=== PATIENT | male | born 1965 | race Caucasian/White ===

== ENCOUNTER → 2016-10-24 | Outpatient (REF) | payer OTHER | END | disposition home or self-care (01) | LOC: M SFHCPLAZ 11:57 | PROVIDERS: ATTEND Family Medicine | DX: R73.03 Prediabetes (principal) ==

== ENCOUNTER → 2016-12-24 | Outpatient (CLI) | payer BC, OTHER ==
[~2016-12-24] VITALS: Ht 177.8 cm; Wt 98.9 kg
[~2016-12-24] MED LIST: LIDOCAINE 2% INJ 100 MG/5 ML SDV (FOR ANES.) As Ordered ONE; MOTR200T44 PO; MULT1TAB18 PO; NS 1,000 ML IV SCH; PROPOFOL 200 MG/20 ML VIAL As Ordered ONE; ZYRT10CA PO
--- NOTE | 2016-12-24 13:19 | ROOR ---
Patient Name: Jose Antonio Douglas Procedure Date: 12/24/2016 12:40 PM Date of : 1965 Age: 51 Room: [facility] Gender: Male Note Status: Finalized Procedure: Colonoscopy Indications: Screening for colorectal malignant neoplasm Providers: Keaton FAUSTIN MD Referring MD: BRANDIN GARCIA [facility] Farida Requesting Provider: Medicines: Monitored Anesthesia Care Complications: No immediate complications. Procedure: Pre-Anesthesia Assessment: - The heart rate, respiratory rate, oxygen saturations, blood pressure, adequacy of pulmonary ventilation, and response to care were monitored throughout the procedure. The Colonoscope was introduced through the anus and advanced to the cecum, identified by appendiceal orifice and ileocecal valve. The colonoscopy was performed without difficulty. The patient tolerated the procedure well. The quality of the bowel preparation was good. Findings: The perianal and digital rectal examinations were normal. (Exam: Complete, Prep: Good or Excellent.) A 40 mm polyp was found in the cecum. The polyp was flat and multi-lobulated. The polyp was removed with a piecemeal technique using a hot snare. Polyp resection was incomplete. The resected tissue was retrieved. A 5 mm polyp was found in the splenic flexure. The polyp was sessile. The polyp was removed with a cold snare. Resection and retrieval were complete. The exam was otherwise without abnormality on direct and retroflexion views. Impression: - One large (40 mm) polypoid lesion in the cecum, removed piecemeal using a hot snare. INCOMPLETE resection. Resected tissue retrieved. - One 5 mm polyp at the splenic flexure, removed with a cold snare. Resected and retrieved. - The examination was otherwise normal on direct and retroflexion views. Recommendation: - Await pathology results. - If the pathology report is benign, then repeat colonoscopy for surveillance after piecemeal polypectomy in 4 months. - If the pathology report is malignant, then refer to a surgeon. - Telephone endoscopist for pathology results in 2 weeks. - No ibuprofen, naproxen, or other non-steroidal anti-inflammatory drugs for 10 days after polyp removal. Keaton Faustin MD Keaton FAUSTIN MD 12/24/2016 1:18:53 PM This report has been signed electronically. Number of Addenda: 0 Note Initiated On: 12/24/2016 12:40 PM Estimated Blood Loss: Estimated blood loss: none.
[2016-12-24 13:50] VITALS: BP 136/81
== END | disposition home or self-care (01) ==
LOC: M OPP 09:25
PROVIDERS: ATTEND Internal Medicine Gastroenterology
DX: Z12.11 Encounter for screening for malignant neoplasm of colon (principal); D12.0 Benign neoplasm of cecum; K63.5 Polyp of colon; F41.9 Anxiety disorder, unspecified; R06.83 Snoring; Z79.899 Other long term (current) drug therapy

== ENCOUNTER → 2016-12-25 | Outpatient (CLI) | payer BC, OTHER ==
[~2016-12-25] MED LIST changes: -LIDOCAINE 2% INJ 100 MG/5 ML SDV (FOR ANES.) As Ordered ONE; -NS 1,000 ML IV SCH; -PROPOFOL 200 MG/20 ML VIAL As Ordered ONE
[2016-12-25 17:25] LABS: MEAN CORPUSCULAR HEMOGLOBIN 31.7 pg (27.0-33.0); MEAN CORPUSCULAR HGB CONC 34.2 g/dl (32.0-36.5); MEAN CORPUSCULAR VOLUME 92.9 fl (80.0-96.0); RED CELL DISTRIBUTION WIDTH 12.2 % (11.5-14.5); WHITE BLOOD COUNT 7.9 K/mm3 (4.0-10.0)
== END ==
LOC: M LAB 16:22
PROVIDERS: ATTEND Internal Medicine Gastroenterology
DX: D12.0 Benign neoplasm of cecum (principal)

== ENCOUNTER 2017-06-10 11:25 | Outpatient (CLI) | payer BC, OTHER ==
[~2017-06-10] VITALS: Ht 180.3 cm; Wt 95.3 kg
[2017-06-10] MEDS ORDERED: NS 1,000 ML IV ONE (11:30)
[2017-06-10] MEDS ORDERED: PROPOFOL 200 MG/20 ML VIAL As Ordered ONE ×2 (12:18→12:52)
[2017-06-10] MEDS ORDERED: LIDOCAINE 2% INJ 100 MG/5 ML SDV (FOR ANES.) As Ordered ONE (12:38)
--- NOTE | 2017-06-10 13:08 | ROOR ---
Patient Name: Jose Antonio Douglas Procedure Date: 06/10/2017 12:31 PM Date of : 1965 Age: 52 Room: [facility] Gender: Male Note Status: Finalized Procedure: Colonoscopy Indications: Last colonoscopy: December 2016, Therapeutic procedure for known colon polyp Providers: Keaton SHER MD Referring MD: BRANDIN GARCIA [facility] Farida Requesting Provider: Medicines: Monitored Anesthesia Care Complications: No immediate complications. Procedure: Pre-Anesthesia Assessment: - The heart rate, respiratory rate, oxygen saturations, blood pressure, adequacy of pulmonary ventilation, and response to care were monitored throughout the procedure. The Colonoscope was introduced through the anus and advanced to the cecum, identified by appendiceal orifice and ileocecal valve. The colonoscopy was performed without difficulty. The patient tolerated the procedure well. The quality of the bowel preparation was good. Findings: The perianal and digital rectal examinations were normal. A medium post polypectomy scar was found in the cecum. There was residual polyp tissue. The polyp was removed with a piecemeal technique using a hot snare. Polyp resection was incomplete, and the resected tissue was partially retrieved. Coagulation for destruction of remaining portion of lesion using argon plasma at 0.8 liters/minute and 20 julian was successful. The exam was otherwise without abnormality on direct and retroflexion views. Impression: - Post-polypectomy scar with residual polyp tissue in the cecum. Hot snare polypectomy performed and Treated with argon plasma coagulation (APC). - The examination was otherwise normal on direct and retroflexion views. Recommendation: - Repeat colonoscopy in 6 months to review the polypectomy site. - No ibuprofen, naproxen, or other non-steroidal anti-inflammatory drugs for 10 days after polyp removal. Keaton Sher MD Keaton SHER MD 06/10/2017 1:08:37 PM This report has been signed electronically. Number of Addenda: 0 Note Initiated On: 06/10/2017 12:31 PM Estimated Blood Loss: Estimated blood loss: none.
[2017-06-10 13:25] VITALS: BP 115/73
== END 2017-06-10 13:48 | disposition home or self-care (01) ==
LOC: M OPP 11:25
PROVIDERS: ATTEND Internal Medicine Gastroenterology
DX: Z98.890 Other specified postprocedural states (principal); K63.5 Polyp of colon

== ENCOUNTER 2018-01-06 10:04 | Day surgery (SDC) | payer BC, OTHER ==
[2018-01-06] MEDS: NS 1,000 ML IV (10:15)
[2018-01-06] MEDS ORDERED: LIDOCAINE 2% INJ 100 MG/5 ML SDV (FOR ANES.) As Ordered (12:05)
[2018-01-06] MEDS ORDERED: PROPOFOL 500 MG/50 ML VIAL As Ordered (12:05)
== END 2018-01-06 12:55 | disposition home or self-care (01) ==
LOC: M OPP 10:04
DX: Z98.890 Other specified postprocedural states (principal); Z86.010 Personal history of colon polyps; F41.9 Anxiety disorder, unspecified; Z09 Encounter for follow-up examination after completed treatment for conditions other than malignant neoplasm
CPT/HCPCS: 45378

== ENCOUNTER → 2020-09-25 | Outpatient (REF) | payer OTHER ==
[~2020-09-25] MED LIST changes: +ALKACAP2 PO
== END ==
LOC: M LAB REF 20:22
PROVIDERS: ATTEND Internal Medicine Gastroenterology
DX: R19.4 Change in bowel habit (principal)

== ENCOUNTER → 2020-11-02 | Outpatient (CLI) | payer OTHER ==
[~2020-11-02] MED LIST changes: +CETI-24 PO; +CYCL-707 PO; +NAPR500T6 PO
== END ==
LOC: M LABSMTC 10:52
PROVIDERS: ATTEND Anesthesiology
DX: Z01.812 Encounter for preprocedural laboratory examination (principal); Z20.822 Contact with and (suspected) exposure to COVID-19

== ENCOUNTER 2020-11-07 10:03 | Day surgery (SDC) | payer BC, OTHER ==
[~2020-11-07] VITALS: Ht 177.8 cm; Wt 96.6 kg
[~2020-11-07 10:03] MED LIST changes: +LIDOCAINE 2% 100MG/5ML SDV (FOR ANES.) As Ordered ONE; +NS 1,000 ML IV ONE; +propofoL 200 MG/20 ML VIAL As Ordered ONE
--- OUTSIDE RECORDS SUMMARY | 2020-11-07 10:07 | CCD | Continuity of Care Document ---
Author Author Jose Antonio DÍAZ M.D. Organization Unknown Address [address] [place] [address] Phone [phone] Problems Description No Information Available Social History Type Date Description Comments Sex Unknown Tobacco Use Start: Unknown Patient has never smoked Allergies, Adverse Reactions, Alerts Description No Known Drug Allergies Medications Description No Active Medications Immunizations Description No Information Available Vital Signs Date Vital Result Comment 09/23/2020 1:54pm BP Systolic 116 mmHg BP Diastolic 82 mmHg Body Temperature 98.2 F Heart Rate 64 /min Respiratory Rate 16 /min Weight 219.38 lb O2 % BldC Oximetry 94 % Results Description No Information Available Procedures Description No Information Available Medical Devices Description No Information Available Encounters Type Date Location Provider Dx Diagnosis Office Visit 09/23/2020 2:00p [place] [facility] Sin Díaz M. D. R19.4 Change in bowel habit Z00.00 Encntr for general adult med ical exam w/o abnormal findings R73.01 Impaired fasting glucose Assessments Date Code Description Provider 09/23/2020 R19.4 Change in bowel habit Sin Díaz M.D. 09/23/2020 Z00.00 Encounter for [facility] l adult medical examination without abnormal findings Sin Díaz M.D. 09/23/2020 R73.01 Impaired fasting glucose Sin Babin M.D. Plan of Treatment No Information Available Functional Status Description No Information Available Mental Status Description No Information Available Referrals Description No Information Available
--- OUTSIDE RECORDS SUMMARY | 2020-11-07 10:07 | CCD | Continuity of Care Document ---
Author Author Jose Antonio DÍAZ M.D. Organization Unknown Address [address] [place] [address] Phone [phone] Problems Description No Information Available Social History Type Date Description Comments Sex Unknown ETOH Use Consumes 1-2 beers per week Tobacco Use Start: Unknown Patient has never [...] O2 % BldC Oximetry 94 % Results Test Acquired Date Facility Test Result H/L Range Note CBC With Differential/Platelet 09/23/2020 [facility] N E WBC 6.2 x10E3/uL 3.4-10.8 RBC 5.47 x10E6/uL 4.14-5.80 Hemoglobin 17.3 g/dL 13.0-17.7 Hematocrit 50.7 % 37.5-51.0 MCV 93 fL 79-97 MCH 31.6 pg 26.6-33.0 MCHC 34.1 g/dL 31.5-35.7 RDW 12.2 % 11.6-15.4 Platelets 294 x10E3/uL 150-450 Neutrophils 57 % Not Estab. Lymphs 30 % Not Estab. Monocytes 10 % Not Estab. Eos 2 % Not Estab. Basos 1 % Not Estab. Immature Cells TNP Neutrophils (Absolute) 3.6 x10E3/uL 1.4-7.0 Lymphs (Absolute) 1.8 x10E3/uL 0.7-3.1 Monocytes(Absolute) 0.6 x10E3/uL 0.1-0.9 Eos (Absolute) 0.1 x10E3/uL 0.0-0.4 Baso (Absolute) 0.0 x10E3/uL 0.0-0.2 Immature Granulocytes 0 % Not Estab. Immature Grans (Abs) 0.0 x10E3/uL 0.0-0.1 NRBC TNP Hematology Comments: TNP Celiac Disease AB Screen W/Reflex 09/23/2020 [facility] p [place] Deamidated Gliadin Abs, IgA 6 units 0-19 1 t-Transglutaminase (tTG) IgA <2 U/mL 0-3 2 Immunoglobulin A, Qn, Serum 297 mg/dL 90-386 U/A DIP FPA 09/23/2020 [facility] Asso ciates Color Urine YELLOW Yellow Appearance CLEAR Clear Specific [place] 1.020 1.00-1.03 PH Urine 5.5 5.0-8.0 Glucose Urine NEG Negative Bilirubin Urine NEG Negative Ketones NEG Negative Blood Urine TRACE Negative Protein Urine NEG Negative Urobilinogen .2 EU/dl 0.2-1.0 Nitrite NEG Negative Leukocytes NEG Negative CMP 09/23/2020 [facility] Glu 87 mg/dL 70 - 110 3 BUN 13 mg/dL 8 - 23 Creat 1.1 mg/dL 0.7 - 1.2 BUN/Creatinine Ratio 12.2 CALC Na 139 mmol/L 136 - 145 K 4.2 mmol/L 3.5 - 5.1 CL 102.9 mmol/L 98.0 - 107.0 Co2 19.9 mmol/L Low 22.0 - 29.0 CA 9.7 mg/dL 8.6 - 10.2 TP 7.5 g/dL 6.6 - 8.7 Alb 4.8 g/dL 3.5 - 5.2 A/G Ratio 1.8 CALC Globulin 2.7 CALC Alp 74.3 U/L 40 - 129 Alt (SGPT) 16 U/L 0 - 41 Ast (Sgot) 17 U/L 0 - 40 Tbili 1.43 mg/dL High 0.0 - 1.2 Osmolality-Calculated 276.6 CALC Anion Gap 20 mmol/L eGFR 87 # Calc 4 eGFR Non-Afr. Libyan 75 # Calc 5 Lipid Panel 09/23/2020 [facility] Chol 214 mg/dL High 0 - 200 Trig 71 mg/dL 35 - 200 HDL 49 mg/dL 35 - 55 LDL_C 151 Calc High 75 - 129 Cho/HDL Ratio 4.3 CALC Laboratory test finding 09/23/2020 [facility] TSH <pending> 1 Negative 0 - 19 Weak Positive 20 - 30 Moderate to Strong Positive >30 2 Negative 0 - 3 Weak Positive 4 - 10 Positive >10 Tissue Transglutaminase (tTG) has been identified as the endomysial antigen. Studies have demonstr- ated that endomysial IgA antibodies have over 99% specificity for gluten sensitive enteropathy. 3 CHRONIC KIDNEY DISEASE STAGI NG PER NKF: MALE GFR INTERPRETATION: 20-49 YRS: >60 mL/min Normal 50-59 YRS: >56 mL/min Normal 60-69 YRS: >49 mL/min Normal 70-79 YRS: >42 mL/min Normal 80 and above >35 mL/min Normal FEMALE GRF INTERPRETATION: 20-39 YRS: >60 mL/min Normal 40-49 YRS: >58 mL/min Normal 50-59 YRS: >51 mL/min Normal 60-69 YRS: >45 mL/min Normal 70-79 YRS: >39 mL/min Normal 80 and above >32 mL/min NormalCLASSIFICATION CHOLESTEROL FOR ADULTS CHILDREN/ADOLESCENTS* DESIRABLE: <200 MG/DL <170 MG/DL BORDER-LINE HIGH RISK: 200-239 MG/DL 170-199 MG/DL HIGH RISK: >240 MG/DL >200 MG/DL CLASS. FOR PRIMARY LDL CHOL PREVENTION: LDL CHOL-CHILD/ADOLESCENTS* DESIRABLE: <130 MG/DL <110 MG/DL BORDERLINE-HIGH RISK: 130-159 MG/DL 110-129 MG/DL HIGH RISK: >160 MG/DL >130 MG/DL *CHILDREN AND ADOLESCENTS REPRESENTS INDIVIDUALA AGED 2-19 YEARS EXCLUSIVE. 4 CKD-EPI 5 CKD-EPI Procedures Description No Information Available Medical Devices Description No Information Available Encounters Type Date Location Provider Dx Diagnosis Office Visit 09/23/2020 2:00p [place] [facility] Sin Díaz M. D. R19.4 Change in bowel habit Z00.00 Encntr for general adult med ical exam w/o abnormal findings R73.01 Impaired fasting glucose E66.3 Overweight Assessments Date Code Description Provider 09/23/2020 R19.4 Change in bowel habit Sin Díaz M.D. 09/23/2020 Z00.00 Encounter for genera l adult medical examination without abnormal findings Sin Díaz M.D. 09/23/2020 R73.01 Impaired fasting glucose Sin Babin M.D. 09/23/2020 E66.3 Overweight Sin Díaz M.D. Plan of Treatment Future Appointment(s):* 10/24/2020 1:30 pm - Sin Díaz M.D. at [facility] Functional Status Description No Information Available Mental Status Description No Information Available Referrals Description No Information Available
--- OUTSIDE RECORDS SUMMARY | 2020-11-07 10:07 | CCD | Continuity of Care Document ---
Author Author Jose Antonio DÍAZ M.D. Organization Unknown Address [address] [place] [address] Phone [phone] Problems Description No Information Available Social History [...] 297 mg/dL 90-386 U/A DIP FPA 09/23/2020 [facility] Asso ciates Color Urine YELLOW Yellow Appearance CLEAR Clear Specific [place] 1.020 1.00-1.03 PH Urine 5.5 5.0-8.0 Glucose [...] eGFR 87 # Calc 4 eGFR Non-Afr. Maltese 75 # Calc 5 Lipid Panel 09/23/2020 [...] Provider Dx Diagnosis Office Visit 09/23/2020 2:00p [place] [facility] Sin Díaz M. D. R19.4 Change [...] 1:30 pm - Sin Díaz M.D. at [facility] Functional Status Description No Information Available Mental Status Description No Information Available Referrals Description No Information Available
--- OUTSIDE RECORDS SUMMARY | 2020-11-07 10:07 | CCD | Continuity of Care Document ---
Author Author Jose Antonio DÍAZ M.D. Organization Unknown Address [address] [place] [address] Phone [phone] Problems Description No Information Available Social History [...] 297 mg/dL 90-386 U/A DIP FPA 09/23/2020 [facility] Asso ciates Color Urine YELLOW Yellow Appearance CLEAR Clear Specific [place] 1.020 1.00-1.03 PH Urine 5.5 5.0-8.0 Glucose Urine NEG Negative Bilirubin Urine NEG Negative Ketones NEG Negative Blood Urine TRACE Negative Protein Urine NEG Negative Urobilinogen .2 EU/dl 0.2-1.0 Nitrite NEG Negative Leukocytes NEG Negative Laboratory test finding 09/23/2020 [facility] TSH <pending> 1 Negative 0 - 19 Weak Positive 20 - 30 Moderate to Strong Positive >30 2 Negative 0 - 3 Weak Positive 4 - 10 Positive >10 Tissue Transglutaminase (tTG) has been identified as the endomysial antigen. Studies have demonstr- ated that endomysial IgA antibodies have over 99% specificity for gluten sensitive enteropathy. Procedures Description No Information Available Medical Devices Description No Information Available Encounters Type Date Location Provider Dx Diagnosis Office Visit 09/23/2020 2:00p [place] [facility] Sin Díaz M. D. R19.4 Change in bowel habit Z00.00 Encntr for general adult med ical exam w/o abnormal findings R73.01 Impaired fasting glucose E66.3 Overweight Assessments Date Code Description Provider 09/23/2020 R19.4 Change in bowel habit Sin Díaz M.D. 09/23/2020 Z00.00 Encounter for [facility] l adult medical examination without abnormal findings Sin Díaz M.D. 09/23/2020 R73.01 Impaired fasting glucose Sin Babin M.D. 09/23/2020 E66.3 Overweight Sin Díaz M.D. Plan of Treatment Future Appointment(s):* 10/24/2020 1:30 pm - Sin Díaz M.D. at [facility] Functional Status Description No Information Available Mental Status Description No Information Available Referrals Description No Information Available
--- OUTSIDE RECORDS SUMMARY | 2020-11-07 10:07 | CCD | Continuity of Care Document ---
Author Author Jose Antonio OLVERA M.D. Organization Unknown Address [address] [place] [address] Phone [phone] Problems Description No Information Available Social History Type Date Description Comments Sex Unknown ETOH Use Consumes 1-2 beers per week Tobacco Use Start: Unknown Patient has never smoked Allergies, Adverse Reactions, Alerts Description No Known Drug Allergies Medications Active Medications SIG Qnty Indications Ordering Provide r Date Naproxen 500mg Tablets DR 1 tab by mouth twice a day as needed pain 60tabs Sin Olvera M. D. 10/24/2020 Cyclobenzaprine HCL 10mg Tablets take one tablet by mouth at bedtime as needed 30tabs Pablo Olvera M.D. 10/24/2020 History Medications No Active Medications Unknown 04/2021 - 10/24/2020 Immunizations Description No Information Available Vital Signs Date Vital Result Comment 10/24/2020 1:30pm BP Systolic 118 mmHg BP Diastolic 78 mmHg Body Temperature 97.2 F Heart Rate 70 /min Respiratory Rate 18 /min Weight 217.00 lb O2 % BldC Oximetry 98 % 09/23/2020 1:54pm BP Systolic 116 mmHg BP [...] 297 mg/dL 90-386 U/A DIP FPA 09/23/2020 [facility] Asso ciates Color Urine YELLOW Yellow Appearance CLEAR Clear Specific [place] 1.020 1.00-1.03 PH Urine 5.5 5.0-8.0 Glucose [...] eGFR 87 # Calc 4 eGFR Non-Afr. [place] 75 # Calc 5 Lipid Panel 09/23/2020 [facility] Chol 214 mg/dL High 0 - 200 Trig 71 mg/dL 35 - 200 HDL 49 mg/dL 35 - 55 LDL_C 151 Calc High 75 - 129 Cho/HDL Ratio 4.3 CALC Laboratory test finding 09/23/2020 [facility] TSH 0.536 ulU/mL Low 0.60 - 4.8 1 Negative 0 - 19 Weak Positive [...] Date Location Provider Dx Diagnosis Office Visit 10/24/2020 1:30p [place] [facility] Sin Olvera M. D. E78.5 Hyperlipidemia, unspecified E05.90 Thyrotoxicosis, unsp without thyrotoxic crisis or storm M54.9 Dorsalgia, unspecified R31.9 Hematuria, unspecified Office Visit 09/23/2020 2:00p [place] [facility] Sin Olvera M. D. R19.4 Change in bowel habit Z00.00 Encntr for general adult med ical exam w/o abnormal findings R73.01 Impaired fasting glucose E66.3 Overweight Assessments Date Code Description Provider 10/24/2020 E78.5 Hyperlipidemia, unspecified [facility] Sin holder M.D. 10/24/2020 E05.90 Thyrotoxicosis, unsp ecified without thyrotoxic crisis or storm Sin Olvera M.D. 10/24/2020 M54.9 Dorsalgia, unspecified Sin Olvera M.D. 10/24/2020 R31.9 Hematuria, unspecified Sin Olvera M.D. 09/23/2020 R19.4 Change in bowel habit Sin Olvera M.D. 09/23/2020 Z00.00 Encounter for [facility] adult medical examination without abnormal findings Sin Olvera M.D. 09/23/2020 R73.01 Impaired fasting glucose Sin Babin M.D. 09/23/2020 E66.3 Overweight Sin Olvera M.D. Plan of Treatment No Information Available Functional Status Description No Information Available Mental Status Description No Information Available Referrals Description No Information Available
--- OUTSIDE RECORDS SUMMARY | 2020-11-07 10:07 | CCD | Continuity of Care Document ---
Author Author Jose Antonio SHER MD Organization Unknown Address [address] [place] [address] Phone [phone] Care Team Providers Care Weatherization Administrator Name Role Phone Praveen Littlejohn D.O. AUTM [phone] Sin Olvera M.D. AUTM [phone] Problems Description No Active Problems Social History Type Date Description Comments Sex Unknown ETOH Use Rarely Tobacco Use Start: Unknown Non Smoker Allergies, Adverse Reactions, Alerts Description No Known Drug Allergies Medications Active Medications SIG Qnty Indications Ordering Provide r Date Suprep Bowel Prep Kit 17.5-3.13-1.6GM/177ML Solution as directed - see dr reilly instructions 1Kit R19.4 Keaton Sher MD 09/21/2020 Milk Of Magnesia 7.75% Suspension take 45 milliliters by mouth about 1-2 days before colonoscopy prep 360ml R19.4 Keaton Sher MD 09/21/2020 Zyrtec Allergy D 10mg Tablets 1 by mouth every day prn Unknown Immunizations Description No Information Available Vital Signs Date Vital Result Comment 09/21/2020 1:15pm BP Systolic 153 mmHg BP Diastolic 84 mmHg Height 70.5 inches 5'10.50" Weight 220.00 lb BMI (Body Mass Index) 31.1 kg/m2 [place] Body Weight 166 lb Weight 99.792 kg BSA (Body Surface Area) 2.19 m2 12/31/2017 3:14pm BP Systolic 133 mmHg BP Diastolic 87 mmHg Height 70.5 inches 5'10.50" Weight 217.00 lb BMI (Body Mass Index) 30.7 kg/m2 [place] Body Weight 166 lb Weight 98.431 kg BSA (Body Surface Area) 2.17 m2 Results Description No Information Available Procedures Description No Information Available Medical Devices Description No Information Available Encounters Type Date Location Provider Dx Diagnosis Office Visit 09/21/2020 1:15p [facility] Keaton Sher MD R19.4 Change in bowel habit D12.0 Benign neoplasm of cecum Assessments Date Code Description Provider 09/21/2020 R19.4 Change in bowel habit Keaton roche MD 09/21/2020 D12.0 Benign neoplasm of cecum Keaton giles MD Plan of Treatment 09/21/2020 - Keaton Sher MD* R19.4 Change in bowel habit * D12.0 Benign neoplasm of cecum * * New Medication:* Suprep Bowel Prep Kit 17.5-3.13-1.6 GM/177ML * Milk Of Magnesia 7.75 % * New Labs:* Gastrointestinal (GI) Panel, Ordered: 09/21/20 * Tissue Transglutaminase Iga, Ordered: 09/21/20 * Immunoglobulin A, Ordered: 09/21/20 * FT4&TSH Panel, Ordered: 09/21/20 * New Orders:* Colonoscopy, Ordered: 09/21/20 * Recommendations:* Colonoscopy -- for checkup on polypectomy site in cecum and to reassess colon for any physical disorder Fiber supplement daily. Functional Status Description No Information Available Mental Status Description No Information Available Referrals Description No Information Available
--- OUTSIDE RECORDS SUMMARY | 2020-11-07 10:07 | CCD | Continuity of Care Document ---
Author Author Jose Antonio OLVERA M.D. Organization Unknown Address [address] [place] [address] Phone [phone] Problems Description No Information Available Social History [...] Rate 70 /min Respiratory Rate 18 /min Height 70 inches 5'10" Weight 217.00 lb [place] Body Weight 166 lb BMI (Body Mass Index) 31.1 kg/m2 O2 % BldC Oximetry 98 % 09/23/2020 [...] 297 mg/dL 90-386 U/A DIP FPA 09/23/2020 [facility] Asso ciates Color Urine YELLOW Yellow Appearance CLEAR Clear Specific [place] 1.020 1.00-1.03 PH Urine 5.5 5.0-8.0 Glucose [...] eGFR 87 # Calc 4 eGFR Non-Afr. Micronesian 75 # Calc 5 Lipid Panel 09/23/2020 [...] YEARS EXCLUSIVE. 4 CKD-EPI 5 CKD-EPI Procedures Date Code Description Status 10/24/2020 49978 Electrocardiogram Complete Compl eted Medical Devices Description No Information Available Encounters Type Date Location Provider Dx Diagnosis Office Visit 10/24/2020 1:30p [place] [facility] Sin Olvera M. D. E78.5 Hyperlipidemia, unspecified E05.90 Thyrotoxicosis, unsp without thyrotoxic crisis or storm M54.9 Dorsalgia, unspecified R31.9 Hematuria, unspecified Office Visit 09/23/2020 2:00p [place] [facility] Sin Olvera M. D. R19.4 Change in bowel habit Z00.00 Encntr for general adult med ical exam w/o abnormal findings R73.01 Impaired fasting glucose E66.3 Overweight Assessments Date Code Description Provider 10/24/2020 E78.5 Hyperlipidemia, unspecified [facility] M.D. 10/24/2020 E05.90 Thyrotoxicosis, unsp ecified without thyrotoxic crisis or storm Sin Olvera M.D. 10/24/2020 M54.9 Dorsalgia, unspecified Sin Olvera M.D. 10/24/2020 R31.9 Hematuria, unspecified Sin Olvera M.D. 09/23/2020 R19.4 Change in bowel habit Sin Olvera M.D. 09/23/2020 Z00.00 Encounter for [facility] adult medical examination without abnormal findings Sin Olvera M.D. 09/23/2020 R73.01 Impaired fasting glucose Sin Babin M.D. 09/23/2020 E66.3 Overweight Sin Olvera M.D. Plan of Treatment Future Appointment(s):* 01/27/2021 1:30 pm - Sin Olvera M.D. at [facility] Functional Status Description No Information Available Mental Status Description No Information Available Referrals Description No Information Available
--- OUTSIDE RECORDS SUMMARY | 2020-11-07 10:07 | CCD | Continuity of Care Document ---
Author Author Jose Antonio PATRICK P.A. Organization Unknown Address [address] [place] [address] Phone [phone] Care Team Providers Care Hydraulic Miner Name Role Phone Praveen LittlejohnM [phone] Problems Description No Active Problems Social History Type Date Description Comments Sex Unknown ETOH Use Occasionally consumes alcohol Tobacco Use Start: Unknown Patient has never smoked Allergies, Adverse Reactions, Alerts Description No Known Drug Allergies Medications Active Medications SIG Qnty Indications Ordering Provide r Date Motrin Ib 200mg Tablets prn Unknown Naproxen 375mg Tablets take one tablet by mouth twice a day after meals Unknown Cyclobenzaprine HCL 10mg Tablets Unknown Immunizations Description No Information Available Vital Signs Date Vital Result Comment 10/26/2020 8:21am Body Temperature 97.1 F Height 70.75 inches 5'10.75" Weight 216.00 lb BMI (Body Mass Index) 30.3 kg/m2 09/05/2017 8:47am Body Temperature 97.3 F Height 69.75 inches 5'9.75" Weight 213.50 lb BMI (Body Mass Index) 30.9 kg/m2 Results Description No Information Available Procedures Date Code Description Status 10/26/2020 69891 X-Ray Spine Lumbosacral Complete Inc Bending Views Min Of 6 Completed Medical Devices Description No Information Available Encounters Description No Information Available Assessments Date Code Description Provider 10/26/2020 M51.36 Other intervertebral disc degene ration, lumbar region Sabi Fraga 10/26/2020 M43.16 Spondylolisthesis, lumbar region Sabi Fraga Plan of Treatment 10/26/2020 - Sabi Fraga* M51.36 Other intervertebral disc degeneration, lumbar region* Follow up:* 2-3 weeks back alayna with [facility] leave as wc per [facility] * M43.16 Spondylolisthesis, lumbar region Functional Status Description No Information Available Mental Status Description No Information Available Referrals Description No Information Available
--- OUTSIDE RECORDS SUMMARY | 2020-11-07 10:07 | CCD | Continuity of Care Document ---
Author Author Jose Antonio DÍAZ M.D. Organization Unknown Address [address] [place] [id number] Phone [phone] Problems Description No Information Available Social History [...] Date Facility Test Result H/L Range Note U/A DIP [facility] 09/23/2020 [facility] Color Urine YELLOW Yellow Appearance CLEAR Clear Specific [place] 1.020 1.00-1.03 PH Urine 5.5 5.0-8.0 Glucose Urine NEG Negative Bilirubin Urine NEG Negative Ketones NEG Negative Blood Urine TRACE Negative Protein Urine NEG Negative Urobilinogen .2 EU/dl 0.2-1.0 Nitrite NEG Negative Leukocytes NEG Negative Laboratory test finding 09/23/2020 FPA/Inhouse TSH <pending> Procedures Description No Information Available Medical Devices Description No Information Available Encounters Type Date Location Provider Dx Diagnosis Office Visit 09/23/2020 2:00p [facility] Sin Díaz M. D. R19.4 Change [...] Sin Díaz M.D. at [facility] Functional Status Description No Information Available Mental Status Description No Information Available Referrals Description No Information Available
--- OUTSIDE RECORDS SUMMARY | 2020-11-07 10:08 | CCD ---
Author Author [facility] Organization [facility] Address Unknown Phone Unavailable Care Team Providers Care Deliverer Outside Name Role Phone Dmitry DÍAZ MD Unavailable Unavailable Dmitry DÍAZ MD Unavailable Unavailable Dmitry DÍAZ MD Unavailable Unavailable Dmitry DÍAZ MD Unavailable Unavailable Dmitry DÍAZ MD Unavailable Unavailable Dmitry DÍAZ MD Unavailable Unavailable Dmitry DÍAZ MD Unavailable Unavailable Dmitry DÍAZ MD Unavailable Unavailable Dmitry DÍAZ MD Unavailable Unavailable Dmitry DÍAZ MD Unavailable Unavailable Dmitry DÍAZ MD Unavailable Unavailable Dmitry DÍAZ MD Unavailable Unavailable Dmitry DÍAZ MD Unavailable Unavailable Dmitry DÍAZ MD Unavailable Unavailable Dmitry DÍAZ MD Unavailable Unavailable Dmitry DÍAZ MD Unavailable Unavailable Dmitry DÍAZ MD Unavailable Unavailable Dmitry DÍAZ MD Unavailable Unavailable Dmitry DÍAZ MD Unavailable Unavailable Dmitry DÍAZ MD Unavailable Unavailable Dmitry DÍAZ MD Unavailable Unavailable Dmitry DÍAZ MD Unavailable Unavailable Dmitry DÍAZ MD Unavailable Unavailable Dmitry DÍAZ MD Unavailable Unavailable Dmitry DÍAZ MD Unavailable Unavailable Dmitry DÍAZ MD Unavailable Unavailable Dmitry DÍAZ MD Unavailable Unavailable Dmitry DÍAZ MD Unavailable Unavailable Dmitry DÍAZ MD Unavailable Unavailable Dmitry DÍAZ MD Unavailable Unavailable Dmitry DÍAZ MD Unavailable Unavailable Dmitry DÍAZ MD Unavailable Unavailable Dmitry DÍAZ MD Unavailable Unavailable Dmitry DÍAZ MD Unavailable Unavailable Dmitry DÍAZ MD Unavailable Unavailable Dmitry DÍAZ MD Unavailable Unavailable Dmitry DÍAZ MD Unavailable Unavailable Dmitry DÍAZ MD Unavailable Unavailable Dmitry DÍAZ MD Unavailable Unavailable Dmitry DÍAZ MD Unavailable Unavailable Dmitry DÍAZ MD Unavailable Unavailable BREDmitry MD Unavailable Unavailable BRE H CAMERON MAE Unavailable Unavailable BRE H CAMERON MD Unavailable Unavailable BREDmitry MD Unavailable Unavailable BREDmitry MD Unavailable Unavailable BREDmitry MD Unavailable Unavailable BREDmitry MD Unavailable Unavailable BREDmitry MD Unavailable Unavailable BRE, H CAMERON MAE Unavailable Unavailable BREDmitry MD Unavailable Unavailable BRE H CAMERON MAE Unavailable Unavailable BRE H CAMERON MD Unavailable Unavailable BREDmitry MD Unavailable Unavailable BRE H CAMERON MD Unavailable Unavailable BRE H CAMERON MD Unavailable Unavailable BREDmitry MD Unavailable Unavailable BRE, Dmitry BARNES MD Unavailable Unavailable BRE H CAMERON MAE Unavailable Unavailable BRE H CAMERON MAE Unavailable Unavailable BRE H CAMERON MAE Unavailable Unavailable Dmitry DÍAZ MD Unavailable Unavailable Dmitry DÍAZ MD Unavailable Unavailable Dmitry DÍAZ MD Unavailable Unavailable Dmitry DÍAZ MD Unavailable Unavailable Dmitry DÍAZ MD Unavailable Unavailable Dmitry DÍAZ MD Unavailable Unavailable Dmitry DÍAZ MD Unavailable Unavailable Dmitry DÍAZ MD Unavailable Unavailable Dmitry DÍAZ MD Unavailable Unavailable Dmitry DÍAZ MD Unavailable Unavailable Dmitry DÍAZ MD Unavailable Unavailable Dmitry DÍAZ MD Unavailable Unavailable Dmitry DÍAZ MD Unavailable Unavailable Dmitry DÍAZ MD Unavailable Unavailable Dmitry DÍAZ MD Unavailable Unavailable REINDL, MELISSA MAE Unavailable Unavailable REINDL, MELISSA MAE Unavailable Unavailable REINDL, MELISSA MAE Unavailable Unavailable REINDL, MELISSA MAE Unavailable Unavailable SHIVADL, MELISSA MAE Unavailable Unavailable RAMIN, MELISSA MAE Unavailable Unavailable RAMIN, MELISSA MAE Unavailable Unavailable SHIVADL, MELISSA MAE Unavailable Unavailable RAMIN, MELISSA MAE Unavailable Unavailable REINDL, MELISSA MAE Unavailable Unavailable REINDL, MELISSA MAE Unavailable Unavailable REINJJ, MELISSA MAE Unavailable Unavailable REINDL, MELISSA MAE Unavailable Unavailable REINDL, MELISSA MAE Unavailable Unavailable REINDL, MELISSA MAE Unavailable Unavailable SHIVADL, MELISSA MAE Unavailable Unavailable SHIVADL, MELISSA MAE Unavailable Unavailable REINDL, MELISSA MAE Unavailable Unavailable REINDL, MELISSA MAE Unavailable Unavailable REINDL, MELISSA MAE Unavailable Unavailable SHIVADL, MELISSA MAE Unavailable Unavailable RAMIN, MELISSA MAE Unavailable Unavailable REINDL, MELISSA MAE Unavailable Unavailable REINDL, MELISSA MAE Unavailable Unavailable REINDL, MELISSA MAE Unavailable Unavailable REINDL, MELISSA MAE Unavailable Unavailable SHIVADL, MELISSA MAE Unavailable Unavailable RAMIN, MELISSA MAE Unavailable Unavailable SHIVADL, MELISSA MAE Unavailable Unavailable REINDL, MELISSA MAE Unavailable Unavailable REINDL, MELISSA MAE Unavailable Unavailable REINDL, MELISSA MAE Unavailable Unavailable REINDL, MELISSA MD Unavailable Unavailable REINDL, MELISSA MD Unavailable Unavailable REINDL, MELISSA MD Unavailable Unavailable REINDL, MELISSA MD Unavailable Unavailable REINDL, MELISSA MD Unavailable Unavailable REINDL, MELISSA MD Unavailable Unavailable REINDL, MELISSA MD Unavailable Unavailable REINDL, MELISSA MD Unavailable Unavailable REINDL, MELISSA MD Unavailable Unavailable REINDL, MELISSA MD Unavailable Unavailable REINDL, MELISSA MD Unavailable Unavailable REINDL, MELISSA MD Unavailable Unavailable Re-disclosure Warning The records that you are about to access may contain information from federally-assisted alcohol or drug abuse programs. If such information is present, then the following federally mandated warning applies: This information has been disclosed to you from records protected by federal confidentiality rules (42 CFR part 2). The federal rules prohibit you from making any further disclosure of this information unless further disclosure is expressly permitted by the written consent of the person to whom it pertains or as otherwise permitted by 42 CFR part 2. A general authorization for the release of medical or other information is NOT sufficient for this purpose. The Federal rules restrict any use of the information to criminally investigate or prosecute any alcohol or drug abuse patient.The records that you are about to access may contain highly sensitive health information, the redisclosure of which is protected by Article 27-F of the [place] [facility] Public Health law. If you continue you may have access to information: Regarding HIV / AIDS; Provided by facilities licensed or operated by the [facility] Office of Mental Health; or Provided by the [facility] Office for People With Developmental Disabilities. If such information is present, then the following [facility] mandated warning applies: This information has been disclosed to you from confidential records which are protected by state law. State law prohibits you from making any further disclosure of this information without the specific written consent of the person to whom it pertains, or as otherwise permitted by law. Any unauthorized further disclosure in violation of state law may result in a fine or group home sentence or both. A general authorization for the release of medical or other information is NOT sufficient authorization for further disc losure. Family History Family Member Name Family Member Gender Family Member Status Date o f Status Description Data Source(s) Unknown Unknown Problem [facility] ([facility] Unknown Female Problem [facility] ([facility] ) Encounters Encounter Providers Location Date Indications Data Source(s ) Outpatient Attender: CAMERON DÍAZ MD [facility] 04/2021 12:30:00 PM EST [facility] ([facility] Outpatient Attender: CAMERON DÍAZ MD [place] 04/2021 01:00:00 PM EST [facility] ([facility] Outpatient Attender: MELISSA Wiley/Estefany/Henry/Shiva roche 09/21/2020 12:15:00 PM EST [facility] ([facility] Medications Medication Brand Name Start Date Product Form Dose Route Admi nistrative Instructions Pharmacy Instructions Status Indications Reaction Description Data Source(s) Cyclobenzaprine hydrochloride 10 MG Oral Tablet Cyclobenzapr ine HCL 10/24/2020 12:00:00 AM EST ORAL active M EDENT ([facility] Naproxen 500 MG Delayed Release Oral Tablet Naproxen 04/2021 12:00:00 AM EST ORAL active MED[facility] ( [facility] Cyclobenzaprine hydrochloride 10 MG Oral Tablet CYCLOBENZAPR INE HCL 10/24/2020 12:00:00 AM EST tablet 30 TAKE ONE TABLET BY MOUTH EVERY DAY AT BEDTIME NEEDED TAKE ONE TABLET BY MOUTH EVERY DAY AT BEDTIME NEEDED SOLD : 10/24/2020 [facility] 17.5-3.13-1.6 gram 10/17/2020 12:00:00 AM EST recon soln [address] KIM INSTRUCTIONS DIRECTED PER DR KIM INSTRUCTIONS SOLD: 10/21/19 21 [facility] No Active Medications 09/23/2020 12:00:00 AM EST completed MED[facility] ([facility] Magnesium Hydroxide 80 MG/ML Oral Suspension Milk Of Magnesi a 09/21/2020 12:00:00 AM EST ORAL active M EDENT ([facility], ) Suprep Bowel Prep Kit Suprep Bowel Prep Kit 09/21/2020 12:00:00 AM EST active MEDENT ([facility], ) 1 % 04/28/2020 12:00:00 AM EDT gel 60 APPLY TO FACE TWO TIMES A DAY APPLY TO FACE TWO TIMES A DAY SOLD: 05/05/2020 [facility] 2 % 04/28/2020 12:00:00 AM EDT ointment 22 APPLY TO EXCORIATED AREAS THREE TIMES A DAY UNTIL RESOLVED APPLY TO EXCORIATED AREAS THREE TIMES A DAY UNTIL RESOLVED SOLD: 05/05/2020 [facility] 2.5 % 04/28/2020 12:00:00 AM EDT cream 28 APPLY TO AFFECTED AREAS TWO TIMES A DAY UNTIL CLEAR THEN USE NEEDED APPLY TO AFFECTED AREAS TWO TIMES A DAY UNTIL CLEAR THEN USE NEEDED SOLD: 05/05/2020 [facility] Insurance Providers Payer name Policy type / Coverage type Policy ID Covered constitution party ID Covered constitution party's relationship to schneider Policy Schneider Plan Information [employer] [id number] SP [id number] BCBS EMPIRE NANCY DIV [id number] SP [id number] [employer] [facility] Health Maintenance Organization (HMO) [id number] Self [id number] TYFFON () Workers Compensation [id number] Self [id number] [employer] Maintenance Organization (HMO) [id number] Self [id number] BCBS EMPIRE NANCY DIV [id number] SP [id number] [employer] [id number] SP [id number] [employer] Health Maintenance Organization (HMO) [id number] Self [id number] [employer] [facility] [employer] Maintenance Organization (HMO) [id number] Self [id number] [employer] [facility] Maintenance Organization (HMO) [id number] Self [id number] [employer] [id number] SP [id number] [employer] [facility] Health Maintenance Organization (HMO) [id number] Self [id number] EMPIR PLAN [facility] U [id number] Self [id number] BCBS EMPIRE NANCY DIV [id number] SP [id number] [employer] [facility] Health Maintenance Organization (HMO) [id number] Self [id number] [employer] Health Maintenance Organization (HMO) [id number] Self [id number] [employer] Maintenance Organization (HMO) [id number] Self [id number] [employer] [facility] [employer] Maintenance Organization (HMO) [id number] Self [id number] TYFFON () Workers Compensation Self [employer] Health Maintenance Organization (HMO) Self [employer] [id number] SP [id number] BCBS EMPIRE NANCY DIV [id number] SP [id number] [employer] O [id number] S [id number] SELF PAY UNAVAILABLE SP [facility] [id number] SP [id number] Surgeries/Procedures Procedure Description Date Indications Data Source(s) X-Ray Spine Lumbosacral Complete Inc Bending Views Min Of 6 10/26/2020 12:00:00 AM EST [facility] ([facility]) Electrocardiogram Complete 10/24/2020 12:00:00 AM EST [facility] ([facility] Results ID Date Data Source [id number] 11/02/2020 11:00:00 AM EST [facility] Name Value Range Interpretation Code Description Data Sophie rce(s) Supporting Document(s) SARS coronavirus 2 RNA Not Detected [facility] [place] This lab was ordered by [facility] and reported by [facility]. ID Date Data Source [id number] 09/23/2020 03:03:00 PM EST [facility] ([facility] Name Value Range Interpretation Code Description Data Sophie rce(s) Supporting Document(s) IgA [Mass/volume] in Serum or Plasma 297 mg/dL 90-386 [facility] ([facility] Tissue transglutaminase IgA Ab [Units/volume] in Serum Labor atory test result 0-3 [facility] ([facility] Negative 0 - 3 Weak Positive 4 - 10 Positive >10 Tissue Transglutaminase (tTG) has been identified as the endomysial antigen. Studies have demonstr- ated that endomysial IgA antibodies have over 99% specificity for gluten sensitive enteropathy. Deamidated Gliadin Abs, IgA 6 units 0-19 [facility] ([facility] Negative 0 - 19 Weak Positive 20 - 30 Moderate to Strong Positive >30 ID Date Data Source [id number] 09/23/2020 03:03:00 PM EST [facility] ([facility] Name Value Range Interpretation Code Description Data Sophie rce(s) Supporting Document(s) Hemoglobin [Mass/volume] in Blood 17.3 g/dL 13.0-17.7 [facility] ([facility] Erythrocytes [#/volume] in Blood by Automated count 5.47 x10E6/uL 4.1 4-5.80 [facility] ([facility] Leukocytes [#/volume] in Blood by Automated count 6.2 x10E3/uL 3.4-10 .8 [facility] ([facility] Hematocrit [Volume Fraction] of Blood by Automated count 50.7 % 3 7.5-51.0 [facility] ([facility] Erythrocyte mean corpuscular volume [Entitic volume] by Auto mated count 93 fL 79-97 [facility] ([facility] Erythrocyte mean corpuscular hemoglobin [Entitic mass] by Automated count 31.6 pg 26.6-33.0 [facility] ([facility] Erythrocyte distribution width [Ratio] by Automated count 12.2 % 11.6-15.4 [facility] ([facility] Erythrocyte mean corpuscular hemoglobin concentration [Mass/volume] by Automated count 34.1 g/dL 31.5-35.7 [facility] ([facility] Platelets [#/volume] in Blood by Automated count 294 x10E3/uL 150-450 [facility] ([facility] Neutrophils 57 % [facility] Lymphs 30 % [facility] Monocytes/100 leukocytes in Blood by Automated count 10 % [facility] ([facility] Basophils/100 leukocytes in Blood by Automated count 1 % [facility] ([facility] Eosinophils/100 leukocytes in Blood by Automated count 2 % [facility] ([facility] Neutrophils [#/volume] in Blood by Automated count 3.6 x10E3/uL 1.4-7 .0 [facility] ([facility] Immature cells [#/volume] in Blood Laboratory test result [facility] ([facility] Monocytes [#/volume] in Blood 0.6 x10E3/uL 0.1-0.9 [facility] ([facility] Lymphocytes [#/volume] in Blood 1.8 x10E3/uL 0.7-3.1 [facility] ([facility] Eosinophils [#/volume] in Blood by Automated count 0.1 x10E3/uL 0.0-0 .4 [facility] ([facility] Immature granulocytes [#/volume] in Blood by Automated count 0.0 x10E3/uL 0.0-0.1 [facility] Immature granulocytes/100 leukocytes in Blood by Automated count 0 % [facility] ([facility] Basophils [#/volume] in Blood by Automated count 0.0 x10E3/uL 0.0-0.2 [facility] ([facility] Morphology [Interpretation] in Blood Narrative Laboratory test result [facility] ([facility] Nucleated erythrocytes/100 leukocytes [Ratio] in Blood by Automated count Laboratory test result [facility] ([facility] ID Date Data Source [id number] 09/23/2020 03:02:00 PM EST MEDENT ([facility] Name Value Range Interpretation Code Description Data Sophie rce(s) Supporting Document(s) Appearance of Urine Laboratory test result [facility] ([facility] Color Urine Laboratory test result M EDENT ([facility] Specific [place] 1.020 1.00-1.03 [facility] ([facility] Glucose Urine Laboratory test result [facility] ([facility] PH Urine 5.5 5.0-8.0 [facility] Ketones Laboratory test result [facility] ([facility] Bilirubin.total [Presence] in Urine by Test strip Laboratory test res ult [facility] ([facility] Blood Urine Laboratory test result M EDENT ([facility] Urobilinogen 0.2 EU/dl 0.2-1.0 [facility] ([facility] Protein Urine Laboratory test result [facility] ([facility] Leukocytes Laboratory test result ME DENT ([facility] Nitrite Laboratory test result [facility] ([facility] ID Date Data Source [id number] 09/23/2020 02:58:00 PM EST MEDENT ([facility] Name Value Range Interpretation Code Description Data Sophie rce(s) Supporting Document(s) Thyrotropin [Units/volume] in Serum or Plasma 0.536 ulU/mL 0. 60-4.8 Below low normal [facility] ([facility] ) ID Date Data Source [id number] 09/23/2020 02:58:00 PM EST MED[facility] ([facility] Name Value Range Interpretation Code Description Data Sophie rce(s) Supporting Document(s) Chol 214 mg/dL 0-200 Above high normal MED[facility] ([facility] CHRONIC KIDNEY DISEASE STAGING PER NKF: MALE GFR INTERPRETATION: 20-49 YRS: [...] DESIRABLE: <130 MG/DL <110 MG/DL BORDERLINE-HIGH RISK: 130- 159 MG/DL 110-129 MG/DL HIGH RISK: >160 MG/DL >130 MG/DL *CHILDREN AND ADOLESCENTS REPRESENTS INDIVIDUALA AGED 2-19 YEARS EXCLUSIVE. Trig 71 mg/dL 35-200 [facility] ([facility] CHRONIC KIDNEY DISEASE STAGING PER NKF: MALE GFR INTERPRETATION: 20-49 YRS: [...] DESIRABLE: <130 MG/DL <110 MG/DL BORDERLINE-HIGH RISK: 130- 159 MG/DL 110-129 MG/DL HIGH RISK: >160 MG/DL >130 MG/DL *CHILDREN AND ADOLESCENTS REPRESENTS INDIVIDUALA AGED 2-19 YEARS EXCLUSIVE. LDL_C 151 Calc 75-129 Above high normal [facility] ([facility] CHRONIC KIDNEY DISEASE STAGING PER NKF: MALE GFR INTERPRETATION: 20-49 YRS: [...] DESIRABLE: <130 MG/DL <110 MG/DL BORDERLINE-HIGH RISK: 130- 159 MG/DL 110-129 MG/DL HIGH RISK: >160 MG/DL >130 MG/DL *CHILDREN AND ADOLESCENTS REPRESENTS INDIVIDUALA AGED 2-19 YEARS EXCLUSIVE. Cholesterol in HDL [Mass/volume] in Serum or Plasma 49 mg/dL 35-55 ADAL[facility]ERT[facility] ([facility] CHRONIC KIDNEY DISEASE STAGING PER NKF: MALE GFR INTERPRETATION: 20-49 YRS: [...] DESIRABLE: <130 MG/DL <110 MG/DL BORDERLINE-HIGH RISK: 130- 159 MG/DL 110-129 MG/DL HIGH RISK: >160 MG/DL >130 MG/DL *CHILDREN AND ADOLESCENTS REPRESENTS INDIVIDUALA AGED 2-19 YEARS EXCLUSIVE. Cho/HDL Ratio 4.3 CALC MEDYULISA ([facility] CHRONIC KIDNEY DISEASE STAGING PER NKF: MALE GFR INTERPRETATION: 20-49 YRS: [...] DESIRABLE: <130 MG/DL <110 MG/DL BORDERLINE-HIGH RISK: 130- 159 MG/DL 110-129 MG/DL HIGH RISK: >160 MG/DL >130 MG/DL *CHILDREN AND ADOLESCENTS REPRESENTS INDIVIDUALA AGED 2-19 YEARS EXCLUSIVE. ID Date Data Source [id number] 09/23/2020 02:58:00 PM EST MEDENT ([facility] Name Value Range Interpretation Code Description Data Sophie rce(s) Supporting Document(s) Creat 1.1 mg/dL 0.7-1.2 [facility] ([facility] CHRONIC KIDNEY DISEASE STAGING PER NKF: MALE GFR INTERPRETATION: 20-49 YRS: [...] DESIRABLE: <130 MG/DL <110 MG/DL BORDERLINE-HIGH RISK: 130- 159 MG/DL 110-129 MG/DL HIGH RISK: >160 MG/DL >130 MG/DL *CHILDREN AND ADOLESCENTS REPRESENTS INDIVIDUALA AGED 2-19 YEARS EXCLUSIVE. BUN 13 mg/dL 8-23 [facility] ([facility] CHRONIC KIDNEY DISEASE STAGING PER NKF: MALE GFR INTERPRETATION: 20-49 YRS: [...] DESIRABLE: <130 MG/DL <110 MG/DL BORDERLINE-HIGH RISK: 130- 159 MG/DL 110-129 MG/DL HIGH RISK: >160 MG/DL >130 MG/DL *CHILDREN AND ADOLESCENTS REPRESENTS INDIVIDUALA AGED 2-19 YEARS EXCLUSIVE. Glu 87 mg/dL 70-110 [facility] CHRONIC KIDNEY DISEASE STAGING PER NKF: MALE GFR INTERPRETATION: 20-49 YRS: [...] DESIRABLE: <130 MG/DL <110 MG/DL BORDERLINE-HIGH RISK: 130- 159 MG/DL 110-129 MG/DL HIGH RISK: >160 MG/DL >130 MG/DL *CHILDREN AND ADOLESCENTS REPRESENTS INDIVIDUALA AGED 2-19 YEARS EXCLUSIVE. Na 139 mmol/L 136-145 [facility] CHRONIC KIDNEY DISEASE STAGING PER NKF: MALE GFR INTERPRETATION: 20-49 YRS: [...] DESIRABLE: <130 MG/DL <110 MG/DL BORDERLINE-HIGH RISK: 130- 159 MG/DL 110-129 MG/DL HIGH RISK: >160 MG/DL >130 MG/DL *CHILDREN AND ADOLESCENTS REPRESENTS INDIVIDUALA AGED 2-19 YEARS EXCLUSIVE. BUN/Creatinine Ratio 12.2 CALC MEDENT ([facility] CHRONIC KIDNEY DISEASE STAGING PER NKF: MALE GFR INTERPRETATION: 20-49 YRS: [...] DESIRABLE: <130 MG/DL <110 MG/DL BORDERLINE-HIGH RISK: 130- 159 MG/DL 110-129 MG/DL HIGH RISK: >160 MG/DL >130 MG/DL *CHILDREN AND ADOLESCENTS REPRESENTS INDIVIDUALA AGED 2-19 YEARS EXCLUSIVE. CL 102.9 mmol/L 98.0-107.0 [facility] CHRONIC KIDNEY DISEASE STAGING PER NKF: MALE GFR INTERPRETATION: 20-49 YRS: [...] DESIRABLE: <130 MG/DL <110 MG/DL BORDERLINE-HIGH RISK: 130- 159 MG/DL 110-129 MG/DL HIGH RISK: >160 MG/DL >130 MG/DL *CHILDREN AND ADOLESCENTS REPRESENTS INDIVIDUALA AGED 2-19 YEARS EXCLUSIVE. K 4.2 mmol/L 3.5-5.1 [facility] ([facility] CHRONIC KIDNEY DISEASE STAGING PER NKF: MALE GFR INTERPRETATION: 20-49 YRS: [...] DESIRABLE: <130 MG/DL <110 MG/DL BORDERLINE-HIGH RISK: 130- 159 MG/DL 110-129 MG/DL HIGH RISK: >160 MG/DL >130 MG/DL *CHILDREN AND ADOLESCENTS REPRESENTS INDIVIDUALA AGED 2-19 YEARS EXCLUSIVE. Co2 19.9 mmol/L 22.0-29.0 Below low normal [facility] ([facility] CHRONIC KIDNEY DISEASE STAGING PER NKF: MALE GFR INTERPRETATION: 20-49 YRS: [...] DESIRABLE: <130 MG/DL <110 MG/DL BORDERLINE-HIGH RISK: 130- 159 MG/DL 110-129 MG/DL HIGH RISK: >160 MG/DL >130 MG/DL *CHILDREN AND ADOLESCENTS REPRESENTS INDIVIDUALA AGED 2-19 YEARS EXCLUSIVE. TP 7.5 g/dL 6.6-8.7 [facility] ([facility] CHRONIC KIDNEY DISEASE STAGING PER NKF: MALE GFR INTERPRETATION: 20-49 YRS: [...] DESIRABLE: <130 MG/DL <110 MG/DL BORDERLINE-HIGH RISK: 130- 159 MG/DL 110-129 MG/DL HIGH RISK: >160 MG/DL >130 MG/DL *CHILDREN AND ADOLESCENTS REPRESENTS INDIVIDUALA AGED 2-19 YEARS EXCLUSIVE. CA 9.7 mg/dL 8.6-10.2 [facility] ([facility] CHRONIC KIDNEY DISEASE STAGING PER NKF: MALE GFR INTERPRETATION: 20-49 YRS: [...] DESIRABLE: <130 MG/DL <110 MG/DL BORDERLINE-HIGH RISK: 130- 159 MG/DL 110-129 MG/DL HIGH RISK: >160 MG/DL >130 MG/DL *CHILDREN AND ADOLESCENTS REPRESENTS INDIVIDUALA AGED 2-19 YEARS EXCLUSIVE. A/G Ratio 1.8 CALC [facility] ([facility] CHRONIC KIDNEY DISEASE STAGING PER NKF: MALE GFR INTERPRETATION: 20-49 YRS: [...] DESIRABLE: <130 MG/DL <110 MG/DL BORDERLINE-HIGH RISK: 130- 159 MG/DL 110-129 MG/DL HIGH RISK: >160 MG/DL >130 MG/DL *CHILDREN AND ADOLESCENTS REPRESENTS INDIVIDUALA AGED 2-19 YEARS EXCLUSIVE. Alb 4.8 g/dL 3.5-5.2 [facility] ([facility] CHRONIC KIDNEY DISEASE STAGING PER NKF: MALE GFR INTERPRETATION: 20-49 YRS: [...] DESIRABLE: <130 MG/DL <110 MG/DL BORDERLINE-HIGH RISK: 130- 159 MG/DL 110-129 MG/DL HIGH RISK: >160 MG/DL >130 MG/DL *CHILDREN AND ADOLESCENTS REPRESENTS INDIVIDUALA AGED 2-19 YEARS EXCLUSIVE. Alp 74.3 U/L 40-129 [facility] ([facility] CHRONIC KIDNEY DISEASE STAGING PER NKF: MALE GFR INTERPRETATION: 20-49 YRS: [...] DESIRABLE: <130 MG/DL <110 MG/DL BORDERLINE-HIGH RISK: 130- 159 MG/DL 110-129 MG/DL HIGH RISK: >160 MG/DL >130 MG/DL *CHILDREN AND ADOLESCENTS REPRESENTS INDIVIDUALA AGED 2-19 YEARS EXCLUSIVE. Globulin 2.7 CALC [facility] ([facility] CHRONIC KIDNEY DISEASE STAGING PER NKF: MALE GFR INTERPRETATION: 20-49 YRS: [...] DESIRABLE: <130 MG/DL <110 MG/DL BORDERLINE-HIGH RISK: 130- 159 MG/DL 110-129 MG/DL HIGH RISK: >160 MG/DL >130 MG/DL *CHILDREN AND ADOLESCENTS REPRESENTS INDIVIDUALA AGED 2-19 YEARS EXCLUSIVE. Alt (SGPT) 16 U/L 0-41 [facility] ([facility] CHRONIC KIDNEY DISEASE STAGING PER NKF: MALE GFR INTERPRETATION: 20-49 YRS: [...] DESIRABLE: <130 MG/DL <110 MG/DL BORDERLINE-HIGH RISK: 130- 159 MG/DL 110-129 MG/DL HIGH RISK: >160 MG/DL >130 MG/DL *CHILDREN AND ADOLESCENTS REPRESENTS INDIVIDUALA AGED 2-19 YEARS EXCLUSIVE. Tbili 1.43 mg/dL 0.0-1.2 Above high normal [facility] ([facility] CHRONIC KIDNEY DISEASE STAGING PER NKF: MALE GFR INTERPRETATION: 20-49 YRS: [...] DESIRABLE: <130 MG/DL <110 MG/DL BORDERLINE-HIGH RISK: 130- 159 MG/DL 110-129 MG/DL HIGH RISK: >160 MG/DL >130 MG/DL *CHILDREN AND ADOLESCENTS REPRESENTS INDIVIDUALA AGED 2-19 YEARS EXCLUSIVE. Ast (Sgot) 17 U/L 0-40 [facility] ([facility] CHRONIC KIDNEY DISEASE STAGING PER NKF: MALE GFR INTERPRETATION: 20-49 YRS: [...] DESIRABLE: <130 MG/DL <110 MG/DL BORDERLINE-HIGH RISK: 130- 159 MG/DL 110-129 MG/DL HIGH RISK: >160 MG/DL >130 MG/DL *CHILDREN AND ADOLESCENTS REPRESENTS INDIVIDUALA AGED 2-19 YEARS EXCLUSIVE. Anion Gap 20 mmol/L [facility] ([facility] CHRONIC KIDNEY DISEASE STAGING PER NKF: MALE GFR INTERPRETATION: 20-49 YRS: [...] DESIRABLE: <130 MG/DL <110 MG/DL BORDERLINE-HIGH RISK: 130- 159 MG/DL 110-129 MG/DL HIGH RISK: >160 MG/DL >130 MG/DL *CHILDREN AND ADOLESCENTS REPRESENTS INDIVIDUALA AGED 2-19 YEARS EXCLUSIVE. eGFR 87 # [facility] ( [facility] CHRONIC KIDNEY DISEASE STAGING PER NKF: MALE GFR INTERPRETATION: 20-49 YRS: [...] DESIRABLE: <130 MG/DL <110 MG/DL BORDERLINE-HIGH RISK: 130- 159 MG/DL 110-129 MG/DL HIGH RISK: >160 MG/DL >130 MG/DL *CHILDREN AND ADOLESCENTS REPRESENTS INDIVIDUALA AGED 2-19 YEARS EXCLUSIVE. Osmolality-Calculated 276.6 CALC MED ENT ([facility] CHRONIC KIDNEY DISEASE STAGING PER NKF: MALE GFR INTERPRETATION: 20-49 YRS: [...] DESIRABLE: <130 MG/DL <110 MG/DL BORDERLINE-HIGH RISK: 130- 159 MG/DL 110-129 MG/DL HIGH RISK: >160 MG/DL >130 MG/DL *CHILDREN AND ADOLESCENTS REPRESENTS INDIVIDUALA AGED 2-19 YEARS EXCLUSIVE. eGFR Non-Afr. [place] 75 # [facility] ([facility] CHRONIC KIDNEY DISEASE STAGING PER NKF: MALE GFR INTERPRETATION: 20-49 YRS: [...] DESIRABLE: <130 MG/DL <110 MG/DL BORDERLINE-HIGH RISK: 130- 159 MG/DL 110-129 MG/DL HIGH RISK: >160 MG/DL >130 MG/DL *CHILDREN AND ADOLESCENTS REPRESENTS INDIVIDUALA AGED 2-19 YEARS EXCLUSIVE. Procedure Vital Signs ID Date Data Source UNK Name Value Range Interpretation Code Description Data Source(s) Body mass index (BMI) [Ratio] 30.3 kg/m2 30.3 k g/m2 [facility] ([facility] ) Body weight 216.00 [lb_av] 216.00 [lb_av] MEDEN T ([facility]) Body height 70.75 [in_i] 70.75 [in_i] [facility] ([facility]) 5'10.75" Body temperature 97.1 [degF] 97.1 [degF] [facility] ([facility]) Oxygen saturation in Arterial blood by Pulse oximetry 98 % 98 % [facility] ([facility] Body mass index (BMI) [Ratio] 31.1 kg/m2 31.1 k g/m2 [facility] ([facility] [place] body weight 166 [lb_av] 166 [lb_av] MEDEN T ([facility] Body weight 217.00 [lb_av] 217.00 [lb_av] MEDEN T ([facility] Body height 70 [in_i] 70 [in_i] [facility] ([facility] 5'10" Respiratory rate 18 /min 18 /min [facility] ( [facility] Heart rate 70 /min 70 /min [facility] ([facility] Body temperature 97.2 [degF] 97.2 [degF] [facility] ([facility] Diastolic blood pressure 78 mm[Hg] 78 mm[Hg] [facility] ([facility] Systolic blood pressure 118 mm[Hg] 118 mm[Hg] M EDENT ([facility] Oxygen saturation in Arterial blood by Pulse oximetry 94 % 94 % [facility] ([facility] Body weight 219.38 [lb_av] 219.38 [lb_av] MEDEN T ([facility] Respiratory rate 16 /min 16 /min [facility] ( [facility] Heart rate 64 /min 64 /min [facility] Body temperature 98.2 [degF] 98.2 [degF] [facility] Diastolic blood pressure 82 mm[Hg] 82 mm[Hg] [facility] Systolic blood pressure 116 mm[Hg] 116 mm[Hg] [facility] Body surface area Derived from formula 2.19 m2 2.19 m2 [facility] ([facility], ) Body weight 99.792 kg 99.792 kg [facility] ([facility]) [place] body weight 166 [lb_av] 166 [lb_av] [facility] Body mass index (BMI) [Ratio] 31.1 kg/m2 31.1 k g/m2 [facility] ([facility]) Body weight 220.00 [lb_av] 220.00 [lb_av] [facility] Body height 70.5 [in_i] 70.5 [in_i] [facility] ([facility]) 5'10.50" Diastolic blood pressure 84 mm[Hg] 84 mm[Hg] [facility] ([facility], ) Systolic blood pressure 153 mm[Hg] 153 mm[Hg] [facility] ([facility], )
[2020-11-07] MEDS ORDERED: propofoL 200 MG/20 ML VIAL As Ordered ONE (11:50)
--- NOTE | 2020-11-07 12:01 | ROOR ---
Patient Name: Jose Antonio Douglas Procedure Date: 11/07/2020 11:29 AM Date of : 1965 Age: 55 Room: [id number] Gender: Male Note Status: Finalized Procedure: Colonoscopy Indications: High risk colon cancer surveillance: Personal history of colonic polyps, High risk colon cancer surveillance: Personal history of adenoma with villous component Providers: Keaton FAUSTIN MD Referring MD: CAMERON DÍAZ MD Requesting Provider: Medicines: Monitored Anesthesia Care Complications: No immediate complications. Procedure: Pre-Anesthesia Assessment: - The heart rate, respiratory rate, oxygen saturations, blood pressure, adequacy of pulmonary ventilation, and response to care were monitored throughout the procedure. The Colonoscope was introduced through the anus and advanced to the terminal ileum, with identification of the appendiceal orifice and IC valve. The colonoscopy was performed without difficulty. The patient tolerated the procedure well. The quality of the bowel preparation was good. Findings: The perianal and digital rectal examinations were normal. Mild sigmoid diverticulosis and small internal hemorrhoids. The entire examined colon appeared normal on direct and retroflexion views. Impression: - Minimal sigmoid diverticulosis and small internal hemorrhoids. - The entire colon is otherwise normal on direct and retroflexion views. - (A small scar is seen in the cecum/very proximal ascending colon, There is no residual polypoid tissue) - No specimens collected. Recommendation: - Repeat colonoscopy in 5 years for surveillance. Procedure Code(s): --- Professional --- 96097, Colonoscopy, flexible; diagnostic, including collection of specimen(s) by brushing or washing, when performed (separate procedure) Diagnosis Code(s): --- Professional --- Z86.010, Personal history of colonic polyps CPT copyright 2019 [employer]. All rights reserved. The codes documented in this report are preliminary and upon roof technician review may be revised to meet current compliance requirements. Keaton Faustin MD Keaton FAUSTIN MD 11/07/2020 12:01:32 PM Electronically signed by Keaton FAUSTIN MD Number of Addenda: 0 Note Initiated On: 11/07/2020 11:29 AM Estimated Blood Loss: Estimated blood loss: none.
[2020-11-07 12:17] VITALS: BP 111/69
== END 2020-11-07 12:54 | disposition home or self-care (01) ==
LOC: M OPP 10:03
PROVIDERS: ATTEND Internal Medicine Gastroenterology
DX: R19.4 Change in bowel habit (principal); Z86.010 Personal history of colon polyps; K57.30 Diverticulosis of large intestine without perforation or abscess without bleeding; K64.8 Other hemorrhoids; F41.9 Anxiety disorder, unspecified; Z79.899 Other long term (current) drug therapy; Z83.6 Family history of other diseases of the respiratory system

== ENCOUNTER → 2024-01-30 | Outpatient (REF) | payer OTHER ==
[~2024-01-30] MED LIST changes: -LIDOCAINE 2% 100MG/5ML SDV (FOR ANES.) As Ordered ONE; -NS 1,000 ML IV ONE; -propofoL 200 MG/20 ML VIAL As Ordered ONE
[2024-01-30 17:35] LABS: ALKALINE PHOSPHATASE 79 U/L (46-116); ALT/SGPT 17 U/L (7.0-40); AST/SGOT 15 U/L (<34); BLOOD UREA NITROGEN 13 MG/DL (9-23); CALCIUM LEVEL 9.1 MG/DL (8.5-10.1); CARBON DIOXIDE LEVEL 29 MMOL/L (20-31); CHLORIDE LEVEL 104 MMOL/L (98-107); CHOLESTEROL LEVEL 206 MG/DL (<200); CHOLESTEROL RISK RATIO 4.63 (<5); GLOMERULAR FILTRATION RATE > 60.0 (>56); GLUCOSE, FASTING 93 MG/DL (60-100); HDL CHOLESTEROL 44.4 MG/DL (>40); LDL CHOLESTEROL 140.4 MG/DL (<100); NON-HDL-C 161.6 MG/DL; POTASSIUM SERUM 4.2 MMOL/L (3.5-5.1); PROSTATIC SPECIFIC AG MONITOR 2.48 NG/ML (< 4.00); SODIUM LEVEL 139 MMOL/L (136-145); TOTAL PROTEIN 7.4 G/DL (5.7-8.2); TRIGLYCERIDES LEVEL 106 MG/DL (<150)
[2024-01-30 17:38] LABS: THYROID STIMULATING HORMONE 0.807 uIU/ML (0.55-4.78)
== END ==
LOC: M LABWUC 16:29
PROVIDERS: ATTEND Internal Medicine
DX: E78.5 Hyperlipidemia, unspecified (principal); E05.90 Thyrotoxicosis, unspecified without thyrotoxic crisis or storm; R35.1 Nocturia